=== PATIENT | female | born 1990 | race Asian ===

== ENCOUNTER 2019-04-22 08:14 | Day surgery (SDC) | payer BC ==
[~2019-04-22 08:14] MED LIST: Sodium Chloride 0.9% 10 ML Syringe FLUSH PRN
[2019-04-22] MEDS ORDERED: Lactated Ringers 1,000 ML IV SCH (08:15)
[2019-04-22] MEDS ORDERED: Midazolam 1 MG/ML 2 ML SDV ONE ×2 (08:39→08:59)
[2019-04-22] MEDS ORDERED: Propofol 200 MG/20 ML SDV ONE ×2 (08:40→08:59)
[2019-04-22] MEDS ORDERED: Ketamine 500 mg/10 ML MDV ONE (08:40)
[2019-04-22] MEDS ORDERED: Lidocaine 2% 100 MG/5 ML Syringe ONE (08:59)
--- NOTE | 2019-04-22 09:02 | PCM.PN ---
- General Info Date of Service: 04/22/19 - Review of Systems Systems Review Comment:: 28-year-old female referred for upper endoscopy because of GERD symptoms. She is medically stable to proceed today. I have discussed the proposed endoscopic procedure with the patient. She agrees to proceed accepting risks. Her recent history and physical is reviewed today. No significant changes are noted. - Patient Data Vitals - Most Recent: Last Vital Signs Temp 98.4 F 04/22/19 08:39 Pulse 71 04/22/19 08:39 Resp 20 04/22/19 08:39 BP 136/88 04/22/19 08:39 Pulse Ox 100 04/22/19 08:39 Weight - Most Recent: 49.895 kg Lab Results Last 24 Hours: Laboratory Results - last 24 hr 04/22/19 Range/Units 08:32 Urine HCG, Qual Negative Med Orders - Current: Current Medications Lactated Ringer's (Ringers, Lactated) 1,000 mls @ 125 mls/hr IV ASDIRECTED ROSE Last Admin: 04/22/19 08:53 Dose: 125 mls/hr Sodium Chloride (Saline Flush) 10 ml FLUSH ASDIRECTED PRN PRN Reason: Keep Vein Open Discontinued Medications Ketamine HCl (Ketalar) Confirm Administered Dose 500 mg .ROUTE .STK-MED ONE Stop: 04/22/19 08:41 Midazolam HCl (Versed 1 Mg/Ml) Confirm Administered Dose 2 mg .ROUTE .STK-MED ONE Stop: 04/22/19 08:40 Propofol (Diprivan 20 Ml) Confirm Administered Dose 200 mg .ROUTE .STK-MED ONE Stop: 04/22/19 08:41 - Problem List Review Problem List Initiated/Reviewed/Updated: Yes - My Orders Last 24 Hours: My Active Orders 04/22/19 08:14 Patient Status [ADT] Routine Verify Patient Consent Obtain [RC] ASDIRECTED Sodium Chloride 0.9% [Saline Flush] 10 ml FLUSH ASDIRECTED PRN Peripheral IV Insertion Adult [OM.PC] Routine 04/22/19 08:15 Peripheral IV Care [RC] . DIRECTED Lactated Ringers [Ringers, Lactated] 1,000 ml IV ASDIRECTED - Assessment Assessment:: GERD - Plan Plan:: EGD
--- NOTE | 2019-04-22 09:27 | PCM.OPNOTE ---
- General Post-Op/Procedure Note Date of Surgery/Procedure: 04/22/19 Operative Procedure(s): EGD with Bx Findings: Small Hiatal Hernia mild reflux esophagitis at GE Jct. Pre Op Diagnosis: GERD Post-Op Diagnosis: Hiatal Hernia. Reflux Esophagitis Anesthesia Technique: MAC Primary Surgeon: Raul Forbes Pathology: Biopsies of Gastric Antrum and Esophagus EBL in mLs: 3 Complications: None Condition: Good
--- NOTE | 2019-04-22 16:52 | OR ---
Date of Procedure: 04/22/2019 PREOPERATIVE DIAGNOSIS: Gastroesophageal reflux disease. POSTOPERATIVE DIAGNOSES: 1. Hiatal hernia. 2. Reflux esophagitis. OPERATION PERFORMED: Esophagogastroduodenoscopy with biopsy. INDICATIONS FOR SURGERY: This 28-year-old female has a recent history of GERD symptoms, which have not responded well to medications. She is referred for upper endoscopy. FINDINGS: At the patient's GE junction, there is a mild degree of inflammation. The Z-line is distinct and only minimally irregular. There is some hyperemia of the mucosa at this level, but no ulceration or exudate is seen. The patient has a small hiatal hernia with mild widening of the hiatus. The remainder of the esophagus, stomach, and visualized duodenum appear normal. DESCRIPTION OF PROCEDURE: The patient was taken to the operating room. She was given intravenous sedation, and with her in the left lateral decubitus position, the Olympus gastroscope was inserted into the mouth via a mouth guard. Under direct visualization, the scope was then carefully advanced down through the cricopharyngeus and down through the esophagus, stomach, and into the duodenum, where examination to the third portion was performed. Careful examination of the duodenum was carried out with no abnormality seen. The scope was withdrawn back into the stomach where full examination including retroflexed examination of the fundus was carried out. Random biopsies of the antrum were taken to rule out H. pylori. The GE junction was carefully examined and biopsies were taken here. Biopsies were also taken in the mid and upper esophagus because of the patient's symptoms. With no sign of any complication, the scope was removed. The patient was then awakened and taken from the operating room in satisfactory condition. ESTIMATED BLOOD LOSS: 3 mL. COMPLICATIONS: None. PROGNOSIS: Good. SANTO Forbes MD /[id number]
== END 2019-04-22 10:20 | disposition home or self-care (01) ==
LOC: LL.SDS 08:14
PROVIDERS: ATTEND Surgery
DX: K21.9 Gastro-esophageal reflux disease without esophagitis (principal); K44.9 Diaphragmatic hernia without obstruction or gangrene; E55.9 Vitamin D deficiency, unspecified; Z79.899 Other long term (current) drug therapy; Z91.013 Allergy to seafood
CPT/HCPCS: 81025; J2001; J2250; J2704; J7120

== ENCOUNTER 2021-04-21 15:50 | Emergency (ER) | payer BC ==
[2021-04-21] MEDS ORDERED: Sodium Chloride 0.9% 10 ML Syringe FLUSH PRN (16:33)
[2021-04-21] MEDS ORDERED: Sodium Chloride 0.9% 1,000 ML IV ONE (16:35)
[2021-04-21] MEDS ORDERED: Metoclopramide 10 MG/2 ML SDV IVPUSH ONE (16:36)
[2021-04-21] MEDS ORDERED: Ketorolac 30 MG/ML SDV IVPUSH ONE (16:36)
[2021-04-21 17:18] LABS: ANION GAP 6.6 meq/L (7-15); CHLORIDE,CL 106 mmol/L (98-107); SODIUM,NA 143 mmol/L (136-145)
--- NOTE | 2021-04-21 22:40 | EDM.PDOC ---
ED HPI GENERAL MEDICAL PROBLEM - General Chief Complaint: Neurological Problem Stated Complaint: Dizziness post covid Time Seen by Provider: 04/21/21 16:30 Source of Information: Reports: Patient History Limitations: Reports: No Limitations - History of Present Illness INITIAL COMMENTS - FREE TEXT/NARRATIVE: Pt. presents to ER with complaints of headache, lightheadedness, fatigue, and myalgias. Pt. states that she was diagnosed with covid 19 on 04/12/2021. She states that she is not experiencing any cough, chest congestion, or trouble breathing. Pt. denies any fever or chills. No nausea, vomiting, or diarrhea. She states that her has recovered from the virus. Pt. denies any head trauma. No numbness/tingling in extremities. No facial weakness. No problems with speech or ambulation. Onset: Today Location: Reports: Generalized Quality: Reports: Ache Severity: Severe Neck Pain Score (Numeric/FACES): 4 - Related Data Allergies Allergy/AdvReac Type Severity Reaction Status Date / Time shellfish derived Allergy Anaphylactic Verified 04/21/21 18:28 Shock Home Meds: Home Meds Cetirizine [ZyrTEC] 10 mg PO DAILY PRN 04/21/19 [History] Cholecalciferol (Vitamin D3) [Vitamin D3] 2,000 unit PO DAILY 04/21/19 [History] Ondansetron [Zofran ODT] 4 mg PO Q6H PRN 04/21/19 [History] Vits #93/Iron Fum/FA [ Formula Tablet] 1 each PO DAILY 04/21/19 [History] Sucralfate [Carafate] 1 tab PO DAILY 04/21/21 [History] Past Medical History - Past Health History Medical/Surgical History: Denies Medical/Surgical History Gastrointestinal History: Reports: 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 Denies: Fever, Chills HEENT: Reports: No Symptoms Respiratory: Reports: No Symptoms. Denies: Shortness of Breath, Wheezing, Cough Cardiovascular: Reports: Lightheadedness. Denies: Chest Pain, Dyspnea on Exertion Endocrine: Reports: No Symptoms GI/Abdominal: Reports: No Symptoms : Reports: No Symptoms Musculoskeletal: Reports: No Symptoms Skin: Reports: No Symptoms Neurological: Reports: Headache, Weakness Psychiatric: Reports: No Symptoms Hematologic/Lymphatic: Reports: No Symptoms Immunologic: Reports: No Symptoms ED EXAM, GENERAL - Physical Exam Exam: See Below Exam Limited By: No Limitations General Appearance: Alert, WD/WN, No Apparent Distress Nose: Normal Inspection, No Blood Throat/Mouth: Normal Inspection, Normal Lips, Normal Teeth, Normal Gums, Normal Oropharynx, Normal Voice, No Airway Compromise Head: Atraumatic, Normocephalic Neck: Normal Inspection, Supple, Non-Tender, Full Range of Motion Respiratory/Chest: No Respiratory Distress, Lungs Clear, Normal Breath Sounds, No Accessory Muscle Use, Chest Non-Tender Cardiovascular: Normal Peripheral Pulses, Regular Rate, Rhythm, No Edema, No JVD, No Murmur Peripheral Pulses: 4+: Radial (L) GI/Abdominal: Soft, Non-Tender, No Organomegaly, No Distention, No Mass (Female) Exam: Deferred Rectal (Female) Exam: Deferred Back Exam: Normal Inspection, Full Range of Motion Extremities: Normal Inspection, Normal Range of Motion, Non-Tender, No Pedal Edema, Normal Capillary Refill Neurological: Alert, Oriented, CN II-XII Intact, Normal Cognition, Normal Refle xes, No Motor/Sensory Deficits Psychiatric: Normal Affect, Normal Mood Course - Vital Signs Last Recorded V/S: Last Vital Signs Temp 37.0 C 04/21/21 16:00 Pulse 78 04/21/21 16:00 Resp 17 04/21/21 16:00 BP 116/73 04/21/21 16:00 Pulse Ox 100 04/21/21 16:00 - Orders/Labs/Meds Orders: Active Orders 24 hr Category Date Time Status Peripheral IV Insertion Adult [OM.PC] Routine Oth 04/21/21 16:33 Ordered Labs: Laboratory Tests 04/21/21 04/21/21 04/21/21 Range/Units 16:47 16:47 16:47 WBC 3.1 L (4.0-10.2) K/uL RBC 4.57 (3.77-5.09) M/uL Hgb 13.0 (11.7-15.5) g/dL Hct 38.8 (34.0-46.0) % MCV 84.9 (84.0-98.0) fL MCH 28.4 (28.2-33.3) pg MCHC 33.5 (31.7-36.0) g/dL RDW 11.9 (11.2-14.1) % Plt Count 139 L D (150-350) K/uL Neut % (Auto) 50.3 (45.0-80.0) % Lymph % (Auto) 36.3 (10.0-50.0) % [place] % (Auto) 13.1 (2.0-14.0) % Eos % (Auto) 0.3 (0.0-5.0) % Baso % (Auto) 0.0 (0.0-2.0) % Neut # (Auto) 1.58 (1.40-7.00) K/uL Lymph # (Auto) 1.14 (0.50-3.50) K/uL [place] # (Auto) 0.41 (0.00-1.00) K/uL Eos # (Auto) 0.01 (0.00-0.50) K/uL Baso # (Auto) 0.00 (0.00-0.20) K/uL Sodium 143 (136-145) mmol/L Potassium 3.6 (3.5-5.1) mmol/L Chloride 106 (98-107) mmol/L Carbon Dioxide 30.4 (21.0-32.0) mmol/L Anion Gap 6.6 L (7-15) meq/L BUN 5 L (7-18) mg/dL Creatinine 0.62 (0.51-1.17) mg/dL Est Cr Clr Drug Dosing 95.30 mL/min Estimated GFR (MDRD) > 60 mL/min Glucose 93 (70-99) mg/dL Lactic Acid 0.7 (0.4-2.0) mmol/L Calcium 8.4 L (8.5-10.1) mg/dL Phosphorus 3.5 (2.6-4.7) mg/dL Magnesium 1.9 (1.8-2.4) mg/dL Total Bilirubin 0.3 (0.2-1.0) mg/dL AST 24 (15-37) U/L ALT 26 (12-78) U/L Alkaline Phosphatase 80 (46-116) IU/L Lactate Dehydrogenase 214 (81-234) U/L C-Reactive Protein 0.2 (<=0.9) mg/dL Total Protein 7.1 (6.4-8.2) g/dL Albumin 3.6 (3.4-5.0) g/dL Meds: Medications Discontinued Medications Generic Name Dose Route Start Last Admin Trade Name Freq PRN Reason Stop Dose Admin Sodium Chloride 1,000 mls @ 1,000 mls/hr 04/21/21 16:35 04/21/21 17:02 Normal Saline IV 04/21/21 17:34 1,000 mls/hr .BOLUS ONE Administration Ketorolac Tromethamine 30 mg 04/21/21 16:36 04/21/21 17:02 Ketorolac 30 Mg/Ml Sdv IVPUSH 04/21/21 16:37 30 mg ONETIME ONE Administration Metoclopramide HCl 10 mg 04/21/21 16:36 04/21/21 17:03 Metoclopramide 10 Mg/2 Ml Sdv IVPUSH 04/21/21 16:37 10 mg ONETIME ONE Administration Sodium Chloride 10 ml 04/21/21 16:33 04/21/21 17:03 Sodium Chloride 0.9% 10 Ml Syringe FLUSH 10 ml ASDIRECTED PRN Administration Keep Vein Open Departure - Departure Time of Disposition: 19:00 Disposition: Home, Self-Care 01 Clinical Impression: COVID-19, Dehydration - Discharge Information Instructions: COVID-19 Frequently Asked Questions, Symptoms of Coronavirus - CDC (10/02/2020) Referrals: PCP,None [Primary Care Provider] - Forms: ED Department Discharge Additional Instructions: Home to rest. Your labs and vital signs are excellent. Unfortunately, it will take your symptoms some time before they completely improve. Tylenol and ibuprofen as needed for headache and muscle pain. Drink plenty of fluids. Return to ER if you have trouble breathing. Sepsis Event Note (ED) - Evaluation Sepsis Screening Result: No Definite Risk - Focused Exam Vital Signs: Vital Signs Temp Pulse Resp BP Pulse Ox 04/21/21 16:00 37.0 C 78 17 116/73 100 - Problem List Review Problem List Initiated/Reviewed/Updated: Yes - My Orders Last 24 Hours: My Active Orders 04/21/21 16:33 Peripheral IV Insertion Adult [OM.PC] Routine - Assessment/Plan Last 24 Hours: My Active Orders 04/21/21 16:33 Peripheral IV Insertion Adult [OM.PC] Routine Plan: Home to rest. Your labs and vital signs are excellent. Unfortunately, it will take your symptoms some time before they completely improve. Tylenol and ibuprofen as needed for headache and muscle pain. Drink plenty of fluids. Return to ER if you have trouble breathing.
== END 2021-04-21 18:25 | disposition home or self-care (01) ==
LOC: LL.ED 15:50
DX: U07.1 COVID-19 (principal); E86.0 Dehydration; Z91.013 Allergy to seafood; K21.9 Gastro-esophageal reflux disease without esophagitis; Z79.899 Other long term (current) drug therapy
CPT/HCPCS: 36415; 80053; 83605; 83615; 83735; 84100; 85025; 86140; 96374; 96375; 99284; 99284-25; J1885; J2765; J7030